=== PATIENT | male | born 1965 | race Caucasian/White ===

== ENCOUNTER 2022-12-02 12:44 | Emergency (ER) | payer OTHER ==
[~2022-12-02] VITALS: Ht 180.3 cm; Wt 72.6 kg
[2022-12-02 13:27] LABS: BASO # 0.1 10*3/uL (0.0-0.1); BASO % 0.8 % (0.0-1.0); EOS # 0.2 10*3/uL (0.0-0.4); EOS % 2.6 % (1.0-4.0); LYMPH # 1.5 10*3/uL (1.3-4.4); LYMPH % 17.6 % (27.0-41.0); MEAN CELL VOLUME 88.8 fl (80.0-94.0); MEAN CORPUSCULAR HGB 28.8 pg (27.0-31.0); MEAN CORPUSCULAR HGB CONC 32.4 g/dl (33.0-37.0); MONO # 0.4 10*3/uL (0.1-1.0); MONO % 4.6 % (3.0-9.0); NEUT # 6.4 10*3/uL (2.3-7.9); NEUT % 74.1 % (47.0-73.0); PLATELET COUNT AUTOMATED 302 10*3/uL (130-400); RED BLOOD COUNT 5.07 10*6/uL (4.50-5.90); RED CELL DISTRI WIDTH 13.7 % (0-14.5); WHITE BLOOD COUNT 8.7 10*3/uL (4.8-10.8)
[2022-12-02 13:48] LABS: ALKALINE PHOSPHATASE 35 U/L (46-116); BUN 13 mg/dl (9-23); CHLORIDE 105 mmol/L (98-107); POTASSIUM 3.5 mmol/L (3.4-5.1); SGPT/ALT 10 U/L (10-49); TOTAL PROTEIN 7.8 gm/dL (6.0-8.0)
[2022-12-02] MEDS ORDERED: IBU800 M1 PO (15:01)
[2022-12-02] MEDS ORDERED: REGLAN10 M1 PO (15:01)
== END 2022-12-02 15:20 | disposition home or self-care (01) ==
LOC: ED 12:44
PROVIDERS: Emergency Medicine
DX: R51.9 Headache, unspecified (principal); Z88.0 Allergy status to penicillin; Z91.040 Latex allergy status; Z88.8 Allergy status to other drugs, medicaments and biological substances

== ENCOUNTER 2024-12-25 11:30 | Emergency (ER) | payer BC ==
[~2024-12-25] VITALS: Ht 177.8 cm; Wt 79.4 kg
[~2024-12-25 11:30] MED LIST: IBU800 M1 PO; REGLAN10 M1 PO
[2024-12-25] MEDS ORDERED: Acetaminophen/Hydrocodone 5 MG/325 MG TABLET PO ONE (11:45)
[2024-12-25] MEDS ORDERED: NAPROSYN500 MG PO (15:23)
[2024-12-25] MEDS ORDERED: METHOCARBAMOL500 M1 PO (15:23)
== END 2024-12-25 15:30 | disposition home or self-care (01) ==
LOC: ED 11:30
DX: S16.1XXA Strain of muscle, fascia and tendon at neck level, initial encounter (principal); S39.012A Strain of muscle, fascia and tendon of lower back, initial encounter; S70.01XA Contusion of right hip, initial encounter; Z88.0 Allergy status to penicillin; V68.5XXA Driver of heavy transport vehicle injured in noncollision transport accident in traffic accident, initial encounter; Y93.I9 Activity, other involving external motion; Y92.488 Other paved roadways as the place of occurrence of the external cause; Y99.8 Other external cause status